=== PATIENT | female | born 1955 | race Caucasian/White ===

== ENCOUNTER 2017-06-17 13:46 | Emergency (ER) | payer OTHER ==
[2017-06-17 14:12] VITALS: BP 115/84; PULSE 90; TEMP 98.9; BMI 36.6
[2017-06-17] MEDS ORDERED: CEPHALEXIN MONOHYDRATE 250 MG CAPSULE (FP) PO ONE (14:22)
--- NOTE | 2017-06-17 14:22 | PDOC ---
History of Present Illness - General History Source: Patient (Slight pain due to pimple in her nose and on her side. ) Exam Limitations: No Limitations <Jay Dixon - Last Filed: 06/17/17 14:25> - General History Source: Patient <Lori Anderson - Last Filed: 06/17/17 14:53> - General Chief Complaint: Abscess Boil Stated Complaint: NOSE PAIN Time Seen by Provider: 06/17/17 13:53 Past History - Past Medical History Diabetes: Yes (Insulin dependent) <Jay Dixon - Last Filed: 06/17/17 14:25> - Past Medical History Anemia: No Asthma: No Cancer: No Cardiac Disorders: No CVA: No COPD: No CHF: No Dementia: No Diabetes: Yes GI Disorders: No Disorders: No HTN: No Hypercholesterolemia: No Liver Disease: No Seizures: No Thyroid Disease: No - Surgical History Abdominal Surgery: No Appendectomy: No Cardiac Surgery: No Cholecystectomy: No Lung Surgery: No Neurologic Surgery: No Orthopedic Surgery: No - Suicide/Smoking/Psychosocial Hx Smoking Status: No Smoking History: Never smoked Have you smoked in the past 12 months: No Number of Cigarettes Smoked Daily: 0 Hx Alcohol Use: No Drug/Substance Use Hx: No Substance Use Type: None Hx Substance Use Treatment: No <MonicaLori Ayesha - Last Filed: 06/17/17 14:53> - Past Medical History Allergies/Adverse Reactions: Allergies Allergy/AdvReac Type Severity Reaction Status Date / Time No Known Allergies Allergy Verified 11/16/12 11:14 Home Medications: Ambulatory Orders Nitrofurantoin Monohyd/M-Cryst [Macrobid] 100 mg PO BID #6 capsule 11/16/12 Paroxetine HCl [Paxil] mg PO HS 11/16/12 Cephalexin Monohydrate [Keflex -] 500 mg PO Q8H #20 capsule 06/17/17 Sulfamethoxazole/Trimethoprim [Bactrim Ds Tablet] 1 each PO BID #10 tablet 06/17 Review of Systems - Review of Systems Able to Perform ROS?: Yes HEENTM: Yes: Nose Pain Musculoskeletal: Yes: Other (Right flank pain. ) All Other Systems: Reviewed and Negative <Jay Dixno - Last Filed: 06/17/17 14:25> *Physical Exam - Vital Signs Last Vital Signs Temp Pulse Resp BP Pulse Ox 98.9 F 90 15 115/84 98 06/17/17 13:50 06/17/17 13:50 06/17/17 13:50 06/17/17 13:50 06/17/17 13:50 - Physical Exam HEENT: positive: Other (Small Abscess in right nasal septum. ) Musculoskeletal: positive: Other (Small abscess right flank) <Jay Dixon - Last Filed: 06/17/17 14:25> - Vital Signs Last Vital Signs Temp Pulse Resp BP Pulse Ox 98.9 F 90 15 115/84 98 06/17/17 13:50 06/17/17 13:50 06/17/17 13:50 06/17/17 13:50 06/17/17 13:50 <Lori Anderson - Last Filed: 06/17/17 14:53> *DC/Admit/Observation/Transfer - Attestations Scribe Attestion: 06/17/17 14:28 Documentation prepared by Jay Dixon, acting as medical scientist for Lori Anderson MD/DO. <Jay Dixon - Last Filed: 06/17/17 14:25> - Discharge Dispostion Admit: No <Lori Anderson - Last Filed: 06/17/17 14:53> Diagnosis at time of Disposition: Abscess of nose (septum) - Discharge Dispostion Disposition: HOME Condition at time of disposition: Stable - Referrals Referrals: Joaquin Gutierrez MD [Staff Physician] - - Patient Instructions Printed Discharge Instructions: DI for Skin Abscess Additional Instructions: Take daily antibiotics as prescribed, call today the ENT doctor for appointment . If pain , headache return to ER any time
[2017-06-17] MEDS ORDERED: SULFAMETHOXAZOLE/TRIMETHOPRIM 800MG/160MG D.S. TABLET PO ONE (14:23)
[2017-06-17] MEDS ORDERED: SULFAMETHOXAZOLE/TRIMETHOPRIM 800MG/160MG D.S. TABLET ONE (14:25)
[2017-06-17] MEDS ORDERED: CEPHALEXIN MONOHYDRATE 500 MG CAPSULE (UD) ONE (14:26)
[2017-06-17] MEDS ORDERED: CEPHALEXIN MONOHYDRATE 250 MG CAPSULE (FP) ONE (14:26)
== END 2017-06-17 14:55 | disposition home or self-care (01) ==
LOC: FER 13:46
DX: J34.89 Other specified disorders of nose and nasal sinuses (principal); E11.9 Type 2 diabetes mellitus without complications
CPT/HCPCS: 99281-25

== ENCOUNTER 2020-12-16 11:41 | Emergency (ER) | payer OTHER ==
[2020-12-16 12:30] VITALS: BP 96/72; PULSE 83; TEMP 97.6; BMI 31.1
[2020-12-16 14:01] LABS: BASO % 0.7 % (0-2.0); EOS % 0.7 % (0-4.5); HEMATOCRIT 43.4 % (32.4-45.2); HEMOGLOBIN 14.7 GM/dL (10.7-15.3); LYMPH % 21.2 % (8-40); MCH 29.2 pg (25.7-33.7); MCHC 33.8 g/dl (32.0-36.0); MEAN CELL VOLUME 86.4 fl (80-96); MEAN PLT VOLUME 10.2 fl (7.5-11.1); MONO % 6.1 % (3.8-10.2); NEUT % 71.3 % (42.8-82.8); PLATELET COUNT 257 K/MM3 (134-434); RBC 5.02 M/mm3 (3.60-5.2); RDW 14.1 % (11.6-15.6); WHITE BLOOD COUNT 11.6 K/mm3 (4.0-10.0)
[2020-12-16 14:26] LABS: CHLORIDE 96 mmol/L (98-107); SODIUM 130 mmol/L (136-145)
[2020-12-16 14:29] LABS: ALBUMIN 3.6 g/dl (3.4-5.0); ANION GAP 8 MMOL/L (8-16); BLOOD UREA NITROGEN 19.9 mg/dL (7-18); CALCIUM 9.5 mg/dL (8.5-10.1); CO2 26 mmol/L (21-32)
[2020-12-16 14:31] LABS: SGOT/AST 12 U/L (15-37); SGPT/ALT 26 U/L (13-61)
[2020-12-16 14:34] LABS: ALK PHOS 161 U/L (45-117); BILIRUBIN,TOTAL 0.3 mg/dL (0.2-1); TOT PROT 7.4 g/dl (6.4-8.2)
[2020-12-16 14:49] LABS: GLUCOSE,RANDOM 473 mg/dL (74-106)
[2020-12-16] MEDS ORDERED: INSULIN REGULAR HUMAN 100 UNITS/ML *VIAL SQ ONE (14:59)
== END 2020-12-16 16:33 | disposition home or self-care (01) ==
LOC: JER 11:41
DX: F41.9 Anxiety disorder, unspecified (principal)
CPT/HCPCS: 36415; 80053; 82962; 84439; 84443; 85025; 99283-25

== ENCOUNTER → 2022-09-26 | Day surgery (SDC) | payer OTHER | END | disposition home or self-care (01) | LOC: FMAMMOTONE 07:42 | PROVIDERS: ATTEND Midwife | PROC: 0HBT3ZX Excision of Right Breast, Percutaneous Approach, Diagnostic (ICD-10-PCS; principal; 2022-09-26) | DX: N60.11 Diffuse cystic mastopathy of right breast (principal); N60.91 Unspecified benign mammary dysplasia of right breast; N64.89 Other specified disorders of breast; R92.0 Mammographic microcalcification found on diagnostic imaging of breast | CPT/HCPCS: 19081; 76098-TC-FY; 87899; 88305-TC; 88342-TC; A4648 ==

== ENCOUNTER → 2022-11-25 | Day surgery (SDC) | payer OTHER ==
[~2022-11-25] MED LIST: BENZOIN/ALOE VERA/STORAX/TOLU 58 ML BOTTLE ONE; BUPIVACAINE HCL/PF 0.25% (2.5MG/ML) 10 ML VIAL ONE
== END | disposition home or self-care (01) ==
LOC: JRADUS-SUR 08:18
PROVIDERS: ATTEND Surgery Surgical Oncology
PROC: BH00ZZZ Plain Radiography of Right Breast (ICD-10-PCS; principal; 2022-11-25)
DX: N60.91 Unspecified benign mammary dysplasia of right breast (principal)
CPT/HCPCS: 19281; A4648

== ENCOUNTER 2022-11-27 05:17 | Day surgery (SDC) | payer OTHER ==
[2022-11-25 13:43] VITALS: BMI 38.5
[2022-11-27] MEDS ORDERED: LIDOCAINE 1%/EPI 1:100000 (20 ML MULTI DOSE VIAL) IJ ONE ×2 (07:38→07:55)
[2022-11-27] MEDS ORDERED: BUPIVACAINE HCL/PF 0.25% (2.5MG/ML) 10 ML VIAL IJ ONE ×2 (07:39→07:55)
[2022-11-27] MEDS ORDERED: PROPOFOL 40 ML ONE (07:52)
[2022-11-27] MEDS ORDERED: MIDAZOLAM HCL 2 MG/2 ML SINGLE DOSE VIAL ONE (07:52)
[2022-11-27] MEDS ORDERED: LIDOCAINE HCL/PF 2% SDV 5ML VIAL ONE (07:52)
[2022-11-27] MEDS ORDERED: ONDANSETRON 4 MG/2 ML VIAL IVPUSH PRN (08:32)
[2022-11-27] MEDS ORDERED: oxyCODONE HCL 5 MG TABLET PO PRN (08:32)
[2022-11-27] MEDS ORDERED: KETOROLAC TROMETHAMINE 30 MG/1 ML VIAL IM PRN (08:33)
[2022-11-27] MEDS ORDERED: LACTATED RINGERS SOLUTION 1,000 ML IV SCH (08:45)
[2022-11-27] MEDS ORDERED: ONDANSETRON 4 MG/2 ML VIAL ONE (08:47)
[2022-11-27] MEDS ORDERED: INSULIN (NOVOLOG) ASPART 100 UNITS/ML 10ML VIAL SQ ONE ×2 (08:56→10:00)
[2022-11-27 09:14] VITALS: RESP 18
[2022-11-27] MEDS ORDERED: INSULIN REGULAR HUMAN 100 UNITS/ML *VIAL SQ ONE (09:29)
[2022-11-27 10:14] VITALS: BP 130/62; PULSE 79; TEMP 98.7
== END 2022-11-27 10:05 | disposition home or self-care (01) ==
LOC: JASU-SURG 05:17
PROVIDERS: ATTEND Surgery Surgical Oncology
PROC: 0HBT0ZX Excision of Right Breast, Open Approach, Diagnostic (ICD-10-PCS; principal; 2022-11-27 08:00)
DX: N60.11 Diffuse cystic mastopathy of right breast (principal)
CPT/HCPCS: 76098-TC-FY; 82962; 88307-TC; 88342-TC; 94760